=== PATIENT | female | born 1985 | race Caucasian/White ===

== ENCOUNTER 2019-12-12 09:22 | Emergency (ER) | payer BC ==
[2019-12-12] MEDS ORDERED: LIDOCAINE 1% 20 ML MDV ONE (09:47)
[2019-12-12] MEDS ORDERED: LORAZEPAM 0.5 MG TABLET ONE (10:06)
[2019-12-12] MEDS ORDERED: ONDANSETRON 4 MG (ODT) TAB ONE (10:06)
--- NOTE | 2019-12-12 11:03 | ER ---
Nurse's Notes [facility] Name: Liz Salmeron Age: 34 yrs Sex: Female : 1985 Arrival Date: 12/12/2019 Time: 09:23 Bed 20 Private MD: Diagnosis: Laceration without foreign body of left little finger without damage to nail Presentation: 12/12 09:39 Presenting complaint: Patient states: cutting onions just prior to arrival when she ss accidently cut the tip of her finger. Small laceration noted to L fifth finger. No bleeding noted at this time. Pt arrived to ED hyperventilating with tingling to bilateral hands. NRB placed during triage. Transition of care: patient was not received from another setting of care. Complicating Factors: There are no complicating factors for this patient. Onset of symptoms was December 12, 2019. Risk Assessment: Do you want to hurt yourself or someone else? Patient reports no desire to harm self or others. Initial Sepsis Screen: Does the patient meet any 2 criteria? No. Patient's initial sepsis screen is negative. Does the patient have a suspected source of infection? No. Patient's initial sepsis screen is negative. Care prior to arrival: None. 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 - Coronavirus screen:: The patient has NOT traveled to [place], [place], or [place] in the past 14 days. - Social history:: Smoking status: Patient denies any tobacco usage or history of. - Ebola Screening: : Patient denies exposure to infectious person Patient denies travel to an Ebola-affected area in the 21 days before illness onset. Screenin:48 Abuse screen: Denies threats or abuse. Denies injuries from another. Nutritional ph screening: No deficits noted. Tuberculosis screening: No symptoms or risk factors identified. Fall Risk None identified. Assessment: 09:46 General: Appears in no apparent distress. comfortable, well groomed, Behavior is ph cooperative, anxious. Pain: Complains of pain in palmar aspect of distal phalanx of left little finger. Neuro: Level of Consciousness is awake, alert, obeys commands, Oriented to person, place, time, situation. Cardiovascular: Capillary refill < 3 seconds in bilateral fingers Patient's skin is warm and dry. Respiratory: Airway is patent Respiratory effort is even, unlabored, Respiratory pattern is tachypnea. GI: No signs and/or symptoms were reported involving the gastrointestinal system. Derm: Skin is healthy with good turgor, Skin is pink, warm \T\ dry. Musculoskeletal: Circulation, motion, and sensation intact. Range of motion: intact in all extremities. Injury Description: Laceration sustained to palmar aspect of distal phalanx of left little finger is clean, superficial, 0.5 to 2.5 cm long, not bleeding. Vital Signs: 09:43 BP 115 / 76; Pulse 80; Resp 28; Temp 97.4(TE); Pulse Ox 100% on R/A; Weight 86.18 kg; ss Height 5 ft. 2 in. (157.48 cm); 11:19 BP 112 / 78; Pulse 71; Resp 18; Temp 97.4; Pulse Ox 99% on R/A; ph 09:43 Body Mass Index 34.75 (86.18 kg, 157.48 cm) ED Course: 09:23 Patient arrived in ED. as 09:26 Analia Dupont [facility]C [facility]. kb 09:26 Kavon Virk MD is Attending Physician. kb 09:27 Elvia Boothe, [place] is Primary Nurse. ph 09:42 Triage completed. ss 09:43 Arm band placed on right wrist. ss 09:47 Patient has correct armband on for positive identification. Bed in low position. Call ph light in reach. Pulse ox on. NIBP on. Door closed. Noise minimized. Warm blanket given. Verbal reassurance given. 11:18 Assist provider with laceration repair on palmar aspect of distal phalanx of left ph little finger that was 2.5 cm. or less using sutures. Set up tray. Performed by Analia ORDAZ Dressed with band aid, Neosporin, Patient tolerated well. Patient did not have IV access during this emergency room visit. Administered Medications: 10:06 Drug: Zofran 4 mg Route: PO; rb1 11:17 Follow up: Response: No adverse reaction; Nausea is decreased ph 10:06 Drug: Ativan 0.5 mg Route: PO; rb1 11:17 Follow up: Response: No adverse reaction; Nausea is decreased ph 10:30 Drug: Lidocaine (1 %) 1 vials Volume: 5 ml; Route: Infiltration; ph 11:17 Follow up: Response: No adverse reaction ph Outcome: 11:03 Discharge ordered by . kb 11:19 Discharged to home ambulatory, with significant other. ph 11:19 Condition: good 11:19 Discharge instructions given to patient, Instructed on discharge instructions, follow up and referral plans. medication usage, Demonstrated understanding of instructions, follow-up care, medications. 11:20 Patient left the ED. ph Signatures: Analia Dupont, BRAKE [employer]ING DRILLER-C BRAKE LINING DRILLER-Sherley Rowan Shelby, RN RN Elvia Boothe RN RN Jayla Henson RN RN rb1
--- NOTE | 2019-12-12 11:04 | EDPHYS ---
Physician Documentation [facility] Name: Liz Salmeron Age: 34 yrs Sex: Female : 1985 Arrival Date: 12/12/2019 Time: 09:23 Bed 20 Private MD: ED Physician Kavon Virk HPI: 12/12 11:00 This 34 yrs old Female presents to ER via Ambulatory with complaints of kb Laceration - Finger. 11:00 The patient has a laceration related to: cooking, from a knife, occurred at home, and kb there are no complicating factors. The injury was accidental. The laceration(s) is(are) located on the palmar aspect of distal phalanx of left little finger. Onset: The symptoms/episode began/occurred just prior to arrival. Associated signs and symptoms: The patient has no apparent associated signs or symptoms. The patient has not experienced similar symptoms in the past. The patient has not recently seen a physician. Pt accidentally cut her left pinky finger with a knife while cutting onions. The laceration caused a panic attack. Significant other reports pt got pale, was breathing fast and passed out. Pt is still hyperventilating, placed on nonrebreather. Pt reports tingling to hands. 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 - Coronavirus screen:: The patient has NOT traveled to [place], [place], or [place] in the past 14 days. - Social history:: Smoking status: Patient denies any tobacco usage or history of. - Ebola Screening: : Patient denies exposure to infectious person Patient denies travel to an Ebola-affected area in the 21 days before illness onset. ROS: 11:00 Constitutional: Negative for fever, chills, and weight loss, ENT: Negative for injury, kb pain, and discharge, Neck: Negative for injury, pain, and swelling, Cardiovascular: Negative for chest pain, palpitations, and edema, Respiratory: Negative for shortness of breath, cough, wheezing, and pleuritic chest pain, Abdomen/GI: Negative for abdominal pain, nausea, vomiting, diarrhea, and constipation, Back: Negative for injury and pain, MS/Extremity: Negative for injury and deformity, Neuro: Negative for headache, weakness, numbness, tingling, and seizure. 11:00 Skin: Positive for laceration(s), of the palmar aspect of distal phalanx of left little finger. 11:00 Psych: Positive for anxiety. Exam: 10:57 Head/Face: Normocephalic, atraumatic. ENT: Nares patent. No nasal discharge, no kb septal abnormalities noted. Tympanic membranes are normal and external auditory canals are clear. Oropharynx with no redness, swelling, or masses, exudates, or evidence of obstruction, uvula midline. Mucous membranes moist. Neck: Trachea midline, no thyromegaly or masses palpated, and no cervical lymphadenopathy. Supple, full range of motion without nuchal rigidity, or vertebral point tenderness. No Meningismus. Chest/axilla: Normal chest wall appearance and motion. Nontender with no deformity. No lesions are appreciated. Cardiovascular: Regular rate and rhythm with a normal S1 and S2. No gallops, murmurs, or rubs. Normal PMI, no JVD. No pulse deficits. Respiratory: Lungs have equal breath sounds bilaterally, clear to auscultation and percussion. No rales, rhonchi or wheezes noted. No increased work of breathing, no retractions or nasal flaring. Abdomen/GI: Soft, non-tender, with normal bowel sounds. No distension or tympany. No guarding or rebound. No evidence of tenderness throughout. MS/ Extremity: Pulses equal, no cyanosis. Neurovascular intact. Full, normal range of motion. Neuro: Awake and alert, GCS 15, oriented to person, place, time, and situation. Cranial nerves II-XII grossly intact. Motor strength 5/5 in all extremities. Sensory grossly intact. Cerebellar exam normal. Normal gait. 10:57 Constitutional: The patient appears alert, awake, anxious. 10:57 Skin: injury, laceration(s), the wound is approximately 2 cm(s), of the palmar aspect of distal phalanx of left little finger, that can be described as clean, no foreign body, irregular, without bleeding. 10:59 Respiratory: hyperventilating. kb Vital Signs: 09:43 BP 115 / 76; Pulse 80; Resp 28; Temp 97.4(TE); Pulse Ox 100% on R/A; Weight 86.18 kg; ss Height 5 ft. 2 in. (157.48 cm); 11:19 BP 112 / 78; Pulse 71; Resp 18; Temp 97.4; Pulse Ox 99% on R/A; ph 09:43 Body Mass Index 34.75 (86.18 kg, 157.48 cm) Laceration: 10:57 Wound Repair of 2cm ( 0.8in ) subcutaneous laceration to palmar aspect of distal kb phalanx of left little finger. Irregularly shaped.. Distal neuro/vascular/tendon intact. Anesthesia: Wound infiltrated with 1 mls of 1% lidocaine. Wound prep: Extensive cleansing with betadine by me, Wound irrigation with saline by me. Skin closed with 5 6-0 Prolene using interrupted sutures and sterile technique. Dressed with Neosporin, bandaid. Patient tolerated well. MDM: 09:26 Patient medically screened. kb 10:57 Data reviewed: vital signs, nurses notes. Data interpreted: Pulse oximetry: on room air kb is 100 %. Interpretation: normal. Counseling: I had a detailed discussion with the patient and/or guardian regarding: the historical points, exam findings, and any diagnostic results supporting the discharge/admit diagnosis, the need for outpatient follow up, a family practitioner, to return to the emergency department if symptoms worsen or persist or if there are any questions or concerns that arise at home. 10:59 ED course: Pt calmed down after ativan. Reports symptoms have resovled Reports she used kb to have panic attacks, but hasn't in a long time. 12/12 09:35 Order name: Prolene, Sutures; Complete Time: 09:39 kb 12/12 09:35 Order name: Dressing - Wound; Complete Time: 09:39 kb 12/12 09:35 Order name: Gloves, Sterile; Complete Time: 09:39 kb 12/12 09:35 Order name: Setup Suture Tray; Complete Time: 09:39 kb Administered Medications: 10:06 Drug: Zofran 4 mg Route: PO; rb1 11:17 Follow up: Response: No adverse reaction; Nausea is decreased ph 10:06 Drug: Ativan 0.5 mg Route: PO; rb1 11:17 Follow up: Response: No adverse reaction; Nausea is decreased ph 10:30 Drug: Lidocaine (1 %) 1 vials Volume: 5 ml; Route: Infiltration; ph 11:17 Follow up: Response: No adverse reaction ph Disposition: 21:25 Co-signature as Attending Physician, Kavon Virk MD I agree with the assessment and kdr plan of care. Disposition: 12/12/19 11:03 Discharged to Home. Impression: Laceration without foreign body of left little finger without damage to nail. - Condition is Stable. - Discharge Instructions: Laceration Care, Adult, [id number]. - Medication Reconciliation Form, Thank You Letter, Antibiotic Education, Prescription Opioid Use form. - Follow up: Emergency Department; When: As needed; Reason: Worsening of condition. Follow up: Private Physician; When: 2 - 3 days; Reason: Recheck today's complaints, Continuance of care, Re-evaluation by your physician. Signatures: Analia Dupont, SUSHMA PATIENT ACCOUNTS COORDINATOR-Kavon Fernández MD MD [facility] Monica Xiong RN RN ss Elvia Boothe RN RN ph Jayla Henson RN RN rb1 Corrections: (The following items were deleted from the chart) 10:59 10:57 Head/Face: Normocephalic, atraumatic. ENT: Nares patent. No nasal discharge, no kb septal abnormalities noted. Tympanic membranes are normal and external auditory canals are clear. Oropharynx with no redness, swelling, or masses, exudates, or evidence of obstruction, uvula midline. Mucous membranes moist. Neck: Trachea midline, no thyromegaly or masses palpated, and no cervical lymphadenopathy. Supple, full range of motion without nuchal rigidity, or vertebral point tenderness. No Meningismus. Chest/axilla: Normal chest wall appearance and motion. Nontender with no deformity. No lesions are appreciated. Cardiovascular: Regular rate and rhythm with a normal S1 and S2. No gallops, murmurs, or rubs. Normal PMI, no JVD. No pulse deficits. Respiratory: Lungs have equal breath sounds bilaterally, clear to auscultation and percussion. No rales, rhonchi or wheezes noted. No increased work of breathing, no retractions or nasal flaring. Abdomen/GI: Soft, non-tender, with normal bowel sounds. No distension or tympany. No guarding or rebound. No evidence of tenderness throughout. MS/ Extremity: Pulses equal, no cyanosis. Neurovascular intact. Full, normal range of motion. Neuro: Awake and alert, GCS 15, oriented to person, place, time, and situation. Cranial nerves II-XII grossly intact. Motor strength 5/5 in all extremities. Sensory grossly intact. Cerebellar exam normal. Normal gait. kb 11:02 10:59 ED course: Pt calmed down after ativan. Reports she used to have panic attacks, kb but hasn't in a long time. kb 11:20 11:03 12/12/2019 11:03 Discharged to Home. Impression: Laceration without foreign body ph of left little finger without damage to nail. Condition is Stable. Forms are Medication Reconciliation Form, Thank You Letter, Antibiotic Education, Prescription Opioid Use. Follow up: Emergency Department; When: As needed; Reason: Worsening of condition. Follow up: Private Physician; When: 2 - 3 days; Reason: Recheck today's complaints, Continuance of care, Re-evaluation by your physician. kb
[2019-12-12 11:26] VITALS: TEMP 97.4
[2019-12-12 11:28] VITALS: BP 112/78; O2SAT 99
== END 2019-12-12 11:20 | disposition home or self-care (01) ==
LOC: ER 09:22
PROC: 0JQK0ZZ Repair Left Hand Subcutaneous Tissue and Fascia, Open Approach (ICD-10-PCS; principal; 2019-12-12)
DX: S61.217A Laceration without foreign body of left little finger without damage to nail, initial encounter (principal); W26.0XXA Contact with knife, initial encounter; Y93.G3 Activity, cooking and baking; Y92.010 Kitchen of single-family (private) house as the place of occurrence of the external cause
CPT/HCPCS: 99283